=== PATIENT | female | born 1995 | race Caucasian/White ===

== ENCOUNTER 2017-03-08 18:59 | Observation (INO) | payer MEDICAID ==
[~2017-03-08] VITALS: Ht 172.7 cm; Wt 83.1 kg
[2017-03-08] MEDS ORDERED: LORazepam 1MG TABLET PO ONE (19:30)
[2017-03-08] MEDS ORDERED: LORazepam 1MG TABLET ONE (19:44)
[2017-03-08 19:58] LABS: BLOOD UREA NITROGEN 12 mg/dL (7-18)
[2017-03-08 20:12] LABS: ACETAMINOPHEN < 2 mcg/mL (10-30)
[2017-03-08 20:45] LABS: DAU SCREEN DISCLAIMER
[2017-03-08] MEDS ORDERED: OMEP20TA62 PO (21:28)
[2017-03-08] MEDS ORDERED: LITH300T3 PO (21:28)
[2017-03-08] MEDS ORDERED: TRAZ50TA18 PO (21:28)
[2017-03-08] MEDS ORDERED: TRAZ100T15 PO (21:28)
[2017-03-08] MEDS ORDERED: HYDR50TA13 PO (21:28)
[2017-03-08] MEDS ORDERED: LORA-446 PO (21:28)
[2017-03-08] MEDS ORDERED: ZIPRASIDONE 20MG CAPSULE ONE (21:40)
[2017-03-08] MEDS ORDERED: ZIPRASIDONE 20MG CAPSULE PO ONE (22:00)
[2017-03-08] MEDS ORDERED: TRAZODONE 100MG TABLET PO ONE (22:00)
[2017-03-08] MEDS ORDERED: IBUPROFEN 200 MG TABLET ONE (23:30)
[2017-03-08] MEDS ORDERED: IBUPROFEN 200 MG TABLET PO ONE (23:30)
[2017-03-09] MEDS ORDERED: LORazepam 1MG TABLET ONE ×2 (03:16→09:12)
[2017-03-09] MEDS ORDERED: hydrOXyzine 50MG TABLET PO ONE (03:30)
[2017-03-09] MEDS ORDERED: LORazepam 1MG TABLET PO ONE (03:30)
[2017-03-09] MEDS ORDERED: LORazepam 1MG TABLET PO PRN (05:30)
[2017-03-09] MEDS ORDERED: HYDR50CA PO (05:40)
[2017-03-09] MEDS: hydrOXyzine 50MG TABLET PO SCH ×3 (08:55→20:25)
[2017-03-09] MEDS: OMEPRAZOLE 20 MG CAPSULE.DR PO SCH (09:00)
[2017-03-09] MEDS: LORazepam 1MG TABLET PO PRN ×2 (09:13→13:43)
[2017-03-09] MEDS: LITHIUM CARBONATE 300 MG CAPSULE PO SCH ×3 (11:49→20:24)
[2017-03-09 12:45] VITALS: BP 110/81
[2017-03-09] MEDS ORDERED: FLUT1DIS3 INH (13:04)
[2017-03-09] MEDS ORDERED: BECL8.7A5 INH (13:04)
[2017-03-09] MEDS ORDERED: ALBU18HF HOMEINH (13:04)
[2017-03-09 19:45] VITALS: BP 104/66
[2017-03-09] MEDS: TRAZODONE 100MG TABLET PO SCH (21:47)
[2017-03-10 07:21] VITALS: BP 110/75
[2017-03-10] MEDS: LITHIUM CARBONATE 300 MG CAPSULE PO SCH ×3 (08:51→21:14)
[2017-03-10] MEDS: OMEPRAZOLE 20 MG CAPSULE.DR PO SCH ×2 (08:52→08:54)
[2017-03-10] MEDS: hydrOXyzine 50MG TABLET PO SCH ×3 (08:52→21:14)
[2017-03-10] MEDS: LORazepam 1MG TABLET PO PRN ×2 (13:57→21:14)
[2017-03-10 19:55] VITALS: BP 111/79
[2017-03-10] MEDS: TRAZODONE 100MG TABLET PO SCH (21:00)
[2017-03-10] MEDS: QVAR 80 MCG INH SCH (21:00)
[2017-03-11 07:41] VITALS: BP 111/79
[2017-03-11] MEDS: OMEPRAZOLE 20 MG CAPSULE.DR PO SCH (08:35)
[2017-03-11] MEDS: LITHIUM CARBONATE 300 MG CAPSULE PO SCH (08:35)
[2017-03-11 08:37] LABS: BLOOD UREA NITROGEN 13 mg/dL (7-18)
[2017-03-11] MEDS: hydrOXyzine 50MG TABLET PO SCH (08:45)
[2017-03-11] MEDS: QVAR 80 MCG INH SCH (09:00)
== END 2017-03-11 09:30 ==
LOC: ED 22:16 → EDIP 23:38 → 3E 03-09 12:38
PROVIDERS: ADMIT Internal Medicine; ATTEND Internal Medicine
DX: R45.851 Suicidal ideations (principal); F31.9 Bipolar disorder, unspecified; Z91.5 Personal history of self-harm
CPT/HCPCS: 36415; 80048; 80178; 80307; 80329; 82040; 84703; 85025; 99285; G0378; G0480